=== PATIENT | female | born 1935 | race Caucasian/White ===

== ENCOUNTER 2017-11-01 20:55 | Inpatient (IN) | payer OTHER, MEDICARE ==
[~2017-11-01] VITALS: Ht 147.3 cm; Wt 59.1 kg
[~2017-11-01 20:55] MED LIST: ASPIR-LOW81 MG PO; BENTYL10 MG PO; CELEBREX200 MG PO; FOLIC ACID1 MG PO; LIPITOR20 MG PO; METHOTREXATE2.5 MG PO; NAPROSYN250 MG PO; NEXIUM40 MG PO; PROMETHAZINE HC25 M1 PO; SYSTANE 0.3-0.1 EACH BOTH EYES; ULTRAM50 MG PO; VENTOLIN HFA18 GM IH; VITAMIN D31000 UNI2 PO
[2017-11-01 21:43] LABS: HEMATOCRIT 39.1 % (36.0-46.0); HEMOGLOBIN 13.1 G/DL (11.9-15.5); MCH 30.3 PG (29.0-34.0); MCHC 33.5 G/DL (30.0-36.0); MCV 90.3 FL (83-99); PLATELET COUNT 180 K/uL (156-360); RBC DIS.WIDTH-CV 13.2 % (11.8-14.6); RBC DIS.WIDTH-SD 43.9 % (39-53); RED BLOOD COUNT 4.33 M/uL (3.80-5.20); WHITE BLOOD COUNT 5.7 K/uL (4.1-10.2)
[2017-11-01 21:52] LABS: CHLORIDE 107 mEq/L (99-109); POTASSIUM 3.7 mEq/L (3.7-5.4); SODIUM 144 mEq/L (136-147)
[2017-11-01 21:53] LABS: GLUCOSE 95 mg/dL (70-99)
[2017-11-01 21:57] LABS: CREATININE 0.9 mg/dL (0.6-1.3); GFR ESTIMATE (CALCULATED) > 59 mL/min/
[2017-11-01 21:58] LABS: UREA NITROGEN (BUN) 11 mg/dL (9-23)
[2017-11-01 22:07] LABS: APPEARANCE CLEAR ((CLEAR)); BILIRUBIN NEGATIVE; BLOOD NEGATIVE; COLOR STRAW ((YELLOW)); GLUCOSE (STRIP) NEGATIVE; KETONES NEGATIVE; LEUKOCYTES TRACE; NITRITE NEGATIVE; PROTEIN (STRIP) NEGATIVE; SPECIFIC GRAVITY 1.006 (1.000-1.030); UROBILINOGEN 0.2 MG/DL (0.2-1.0)
[2017-11-01 22:17] LABS: BACTERIA NONE SEEN /HPF; EPITHELIAL CELLS RARE /HPF; MUCUS TRACE /LPF; RED BLOOD CELLS NONE SEEN /HPF (0-5); UCUL ADDED? NO; WHITE BLOOD CELLS 0-5 /HPF (0-5)
[2017-11-01 22:22] LABS: TROP-I INTERPRETATION NEGATIVE; TROPONIN-I 0.01 ng/mL (0.0-0.30)
[2017-11-02] MEDS ORDERED: RANITIDINE HCL150 MG PO (00:24)
[2017-11-02] MEDS ORDERED: LO-DOSE ASPIRIN81 M2 PO (00:25)
[2017-11-02 06:51] LABS: HDL CHOLESTEROL 73 MG/DL (Desirable>=50); LDL CHOLESTEROL 76 mg/dL (Desirable<100); NON-HDL CHOLESTEROL 111 mg/dL (Desirable<160); TOTAL CHOLESTEROL 184 mg/dL (Desirable<200); TRIGLYCERIDES 176 MG/DL (Normal: <150)
[2017-11-02 09:11] LABS: HEMOGLOBIN A1c (GLYCOHEMOGLOB) 5.4 % (Below 5.7)
[2017-11-02 11:40] VITALS: BP 186/85
[2017-11-02 16:20] VITALS: BP 182/80
[2017-11-02 17:45] VITALS: BP 134/74
[2017-11-02 20:00] VITALS: BP 137/63
[2017-11-03 00:27] VITALS: BP 142/60
[2017-11-03 05:16] VITALS: BP 111/60
[2017-11-03] MEDS ORDERED: NIFEDIPINE ER30 MG PO (08:58)
[2017-11-03 09:54] VITALS: BP 116/59
== END 2017-11-03 10:24 | disposition home or self-care (01) | DRG 149 ==
LOC: EME 20:55 → EDOF 11-02 02:57 → ENRESERV 11-02 03:04 → 4EAST 11-02 11:21 → ENPENDDIS 11-03 → 4EAST 11-03 10:24
PROVIDERS: Emergency Medicine
DX: R42 Dizziness and giddiness (principal); I10 Essential (primary) hypertension; I49.3 Ventricular premature depolarization; K21.9 Gastro-esophageal reflux disease without esophagitis; M06.9 Rheumatoid arthritis, unspecified; Z85.3 Personal history of malignant neoplasm of breast; Z79.82 Long term (current) use of aspirin; Z86.73 Personal history of transient ischemic attack (TIA), and cerebral infarction without residual deficits
CPT/HCPCS: 70450; 70551; 71046; 80048; 80061; 81003; 83036; 83605; 84484; 85027; 93005; 93306; 93880; 99281; 99284; J0360; J1644